=== PATIENT | male | born 1965 | race Caucasian/White ===

== ENCOUNTER → 2020-06-16 09:50 | Outpatient (CLI) | payer OTHER, SELFPAY ==
--- NOTE | ~2020-06-16 | XR_ITS ---
XR ankle LT min 3V DATE: 06/16/2020 10:37 INDICATION: Ankle injury, sprain, pain, swelling TECHNIQUE: 4 views COMPARISON: None FINDINGS: Moderately prominent generalized soft tissue swelling of the left ankle. Ankle joint effusion is suggested. An approximately 1.7 mm small bony density is noted overlying the ankle joint at the lower medial asp ect of the medial malleolus, possibly a small intra-articular medial malleolar cortical avulsion frac ture No other fracture or any dislocation, periosteal reaction or bone destruction is detected. Mild plantar calcaneal enthesopathy IMPRESSION: Generalized soft tissue swelling of the ankle Approximately 1.7 mm cortical fracture fragment from the lower medial aspect of the medial malleolus is suggested. 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
== END ==
PROVIDERS: PCP Pediatrics
DX: S93.409A Sprain of unspecified ligament of unspecified ankle, initial encounter (principal); S96.919A Strain of unspecified muscle and tendon at ankle and foot level, unspecified foot, initial encounter; X58.XXXA Exposure to other specified factors, initial encounter; M25.472 Effusion, left ankle
CPT/HCPCS: 73610

== ENCOUNTER → 2021-12-30 08:22 | Outpatient (CLI) | payer OTHER, SELFPAY ==
--- NOTE | ~2021-12-30 | XR_ITS ---
XR foot LT min 3V DATE: 12/30/2021 08:56 INDICATION: Left foot pain TECHNIQUE: 4 views COMPARISON: None FINDINGS: Minimal plantar calcaneal enthesopathy. No fracture, dislocation, periosteal reaction or bone destruction. Joint spaces are preserved. No ero sive change. IMPRESSION: Minimal plantar calcaneal enthesopathy Reviewed, dictated and finalized at location B.
== END ==
PROVIDERS: PCP Pediatrics
DX: M79.672 Pain in left foot (principal)
CPT/HCPCS: 73630

== ENCOUNTER → 2022-06-27 07:00 | Outpatient (CLI) | payer OTHER, SELFPAY ==
--- NOTE | ~2022-06-27 | MR_ITS ---
MRI of the left ankle Clinical history: Heel pain Technique: Coronal proton-density and proton-density fat-sat images, axial proton-density and proton- density fat-sat images, and sagittal proton-density and proton-density fat-sat images were acquired. Findings: Syndesmotic ligament are intact. Anterior and posterior talofibular ligaments, and calcaneo fibular ligament are intact. Deltoid ligament is intact. Medial flexor tendons, peroneal tendons, anterior extensor tendons, and Achilles tendon are intact. Bone marrow signals are unremarkable. Joint spaces are intact. No joint effusion evident. There is thickening and mild increased signal at the origin of the plantar fascia at the calcaneus. N ormal signal preserved in the sinus Tarsi. No soft tissue mass or fluid collection evident. Impression: Findings consistent with mild plantar fasciitis at the calcaneal origin of the plantar fascia. Reviewed, dictated and finalized at [facility]. K[employer]IVER Impression: Findings consistent with mild plantar fasciitis at the calcaneal origin of the plantar fascia.
== END ==
PROVIDERS: PCP Pediatrics
DX: M79.672 Pain in left foot (principal)
CPT/HCPCS: 73721